=== PATIENT | male | born 1950 | race Caucasian/White ===

== ENCOUNTER 2020-08-16 05:48 | Emergency (ER) | payer OTHER ==
[~2020-08-16] VITALS: Ht 182.9 cm; Wt 90.7 kg
[2020-08-16 05:48] VITALS: BP_SYST 142
--- NOTE | 2020-08-16 05:48 | NUR ---
Patient to ER bed 7 to gown for evaluation. Side rails up. Report given to self. Site to frontal scalp cleansed with sterile water and betadine. Site measures approximately 2cm dressing applied. Tetanus vaccination current.
--- NOTE | 2020-08-16 06:00 | NUR ---
ER Dr. Hopper at bedside examining patient.
--- NOTE | 2020-08-16 06:10 | NUR ---
Patient has a 5 cm laceration to fronal scalp. Dr. Hopper applied aaron using sterile technique. Edges well approximated. Site cleansed with bacitracin. Dressing of sterile gauze applied to site. No bleeding noted. Pt tolerated well.
[2020-08-16] MEDS ORDERED: BACITRACIN ZINC 15 GM TOPICAL OINTMENT TP ONE (06:15)
[2020-08-16] MEDS ORDERED: BACITRACIN 1 GM OINT TP ONE (06:16)
--- NOTE | 2020-08-16 06:59 | NUR ---
assumed care of patient, resting comfortably, denies pain or headache, POC reviewd awaiting results of CT scan.
[2020-08-16] MEDS ORDERED: NAPR-1172 PO (07:12)
[2020-08-16 07:31] VITALS: BP_SYST 163
--- NOTE | 2020-08-16 07:32 | NUR ---
Patient given written and verbal discharge instructions and verbalizes understanding. discussed with patient the results and treatment provided. Patient in stable condition. ID arm band removed. Patient educated on pain management and to follow up with PMD. Pain Scale 0. Opportunity for questions provided and answered.
== END 2020-08-16 07:32 | disposition home or self-care (01) ==
LOC: SED 05:48
DX: S01.01XA Laceration without foreign body of scalp, initial encounter (principal); W06.XXXA Fall from bed, initial encounter; Y93.89 Activity, other specified; Y92.89 Other specified places as the place of occurrence of the external cause; Y99.8 Other external cause status
CPT/HCPCS: 70450-TC; 76376; 99284